=== PATIENT | female | born 1950 | race Caucasian/White ===

== ENCOUNTER 2019-10-28 14:29 | Emergency (ER) | payer OTHER, MEDICAID ==
[~2019-10-28] VITALS: Ht 162.6 cm; Wt 97.5 kg
[2019-10-28 14:41] VITALS: Ht 162.6 cm; Wt 97.5 kg
[2019-10-28 15:23] LABS: CALCIUM 9.1 mg/dL (8.5-10.1); CARBON DIOXIDE 32.8 mmol/L (21-32); CHLORIDE SERUM 100 mmol/L (98-107); GFR1 58 mL/min; GLUCOSE SERUM 113 mg/dL (74-106); POTASSIUM SERUM 3.4 mmol/L (3.5-5.1); SODIUM SERUM 139 mmol/L (136-145)
[2019-10-28 15:28] LABS: BASOPHIL % 0.9 % (0-2); PLATELET COUNT 322 x10^3mcL (130-400); RED CELL DISTRIBUTION WIDTH 14.8 % (11.5-14.5)
[2019-10-28 15:29] LABS: ALBUMIN 3.7 g/dL (3.4-5.0); ALKALINE PHOSPHATASE 147 U/L (46-116); ALT/SGPT 37 U/L (14-59); AST/SGOT 22 U/L (15-37); BILIRUBIN TOTAL 0.28 mg/dL (0.20-1.00); TOTAL PROTEIN, SERUM 7.7 g/dL (6.4-8.2)
[2019-10-28 16:28] LABS: microscopic required? NO
[2019-10-28 16:38] LABS: urine erythrocyte NEGATIVE (NEGATIVE)
[2019-10-28 16:52] LABS: AMPHETAMINE QUAL UR NONE DETECTED (See below)
[2019-10-28 17:46] VITALS: BP 115/68
== END 2019-10-28 17:47 | disposition home or self-care (01) ==
LOC: ED 14:29
PROVIDERS: Emergency Medicine
DX: F32.9 Major depressive disorder, single episode, unspecified (principal); Z13.89 Encounter for screening for other disorder
CPT/HCPCS: 36415; G0480